=== PATIENT | female | born 1970 | race Two or more races ===

== ENCOUNTER 2017-04-29 07:41 | Outpatient (CLI) | payer OTHER ==
[~2017-04-29 07:41] MED LIST: ATENOLOL25 MG; COZAAR100 MG; PEPCID20 MG; SYNTHROID112 MCG; VOLTAREN 50 MG PO
== END 2017-04-29 12:23 | disposition home or self-care (01) ==
LOC: MRI 07:41
DX: Q61.00 Congenital renal cyst, unspecified (principal)
CPT/HCPCS: 74183

== ENCOUNTER 2017-05-17 09:00 | Outpatient (CLI) | payer OTHER | END 2017-05-17 09:07 | disposition home or self-care (01) | LOC: MAMO-SONO 09:00 | DX: N64.4 Mastodynia (principal); Z12.31 Encounter for screening mammogram for malignant neoplasm of breast ==

== ENCOUNTER → 2017-12-12 06:11 | Outpatient (CLI) | payer OTHER | END | disposition home or self-care (01) | LOC: LAB 06:11 | DX: E89.0 Postprocedural hypothyroidism (principal) ==

== ENCOUNTER → 2018-01-08 06:11 | Outpatient (CLI) | payer OTHER | END | disposition home or self-care (01) | LOC: LAB 06:11 | DX: I11.9 Hypertensive heart disease without heart failure (principal); E78.4 Other hyperlipidemia ==

== ENCOUNTER 2018-06-11 07:08 | Outpatient (CLI) | payer OTHER | END 2018-06-11 07:24 | disposition home or self-care (01) | LOC: TOM 07:08 | DX: K42.9 Umbilical hernia without obstruction or gangrene (principal); Z48.89 Encounter for other specified surgical aftercare; M15.0 Primary generalized (osteo)arthritis ==

== ENCOUNTER 2018-08-21 06:04 | Day surgery (SDC) | payer OTHER | END 2018-08-21 14:55 | disposition home or self-care (01) | LOC: AMB-ENDOS 06:04 | DX: K29.50 Unspecified chronic gastritis without bleeding (principal) ==